=== PATIENT | female | born 1965 | race Caucasian/White ===

== ENCOUNTER 2019-09-20 12:23 | Emergency (ER) | payer MEDICAID ==
[~2019-09-20] VITALS: Ht 162.6 cm; Wt 66.7 kg
--- NOTE | 2019-09-20 12:36 | NUR ---
IMPLEMENT MECHANIC: EKG COMPLETED IN TRIAGE.
--- NOTE | 2019-09-20 12:46 | NUR ---
TO ROOM FROM [facility]. NAD.
[2019-09-20] MEDS ORDERED: BICILLIN-LA 1,200,000 UNITS/2 ML IM ONE (14:30)
[2019-09-20] MEDS ORDERED: PLEASE ENTER ALLERGIES MC SCH (14:30)
[2019-09-20 15:14] VITALS: BP 124/62
--- NOTE | 2019-09-20 15:16 | NUR ---
PT DISCHARGED WITH TAXI VOUCHER TO HOMELESS CORRECTION. PT ALSO GIVEN MULTIPLE SNACKS, JUICE AND WATER.
== END 2019-09-20 15:16 | disposition home or self-care (01) ==
LOC: ED 14:35
DX: J02.0 Streptococcal pharyngitis (principal); R00.0 Tachycardia, unspecified
CPT/HCPCS: 93005; 96372; 99283; J0561